=== PATIENT | female | born 1990 | race Caucasian/White ===

== ENCOUNTER → 2016-10-11 22:28 | Observation (INO) ==
[2016-10-11 21:26] VITALS: BP 128/73
[2016-10-11 21:47] LABS: Bilirubin,Urine Negative (Negative); Blood,Urine Negative (Negative); Clarity,Urine Cloudy (Clear); Color,Urine Yellow (Yellow); Glucose,Urine (UA) Normal (Normal); Ketones,Urine Negative (Negative); Leukocyte Esterase,Urine Negative (Negative); Nitrite,Urine Negative (Negative); Protein,Urine Negative (Neg-Trace); Specific Gravity,Urine 1.013 (1.010-1.025); Urobilinogen,Urine Normal (Normal)
[2016-10-11 21:50] LABS: Bacteria,Urine Few per hpf (None-Few); Hyaline Casts,Urine None Seen per lpf (None-Few); RBC,Urine 0-3 per hpf (0-3); Squamous Epithelial Cell,Urine Many per lpf (None-Few); WBC,Urine 0-3 per hpf (0-3)
[2016-10-11 21:53] LABS: Amphetamine Screen,Urine Negative ng/mL (Cutoff=1000); Barbiturate Screen,Urine Negative ng/mL (Cutoff=200); Benzodiazepines Screen,Urine Negative ng/mL (Cutoff=200); Cannabinoid Screen,Urine Negative ng/mL (Cutoff = 50); Cocaine Screen,Urine Negative ng/mL (Cutoff= 300); Opiate Screen,Urine Negative ng/mL (Cutoff=300); Phencyclidine Screen,Urine Negative ng/mL (Cutoff=25)
--- NOTE | 2016-10-11 22:08 | OB/GYN Progress Note ---
Date of Encounter: 10/11/16 Time of Encounter: 22:06 - Assessment and Plan (1) 29 weeks gestation of Current Visit: Yes Status: Acute (2) Cramping affecting , antepartum Current Visit: Yes Status: Acute Pt states she has had no further contractions or cramping episodes since she arrived at the hospital. None seen on monitor. Cervical exam fingertip. Discharged home with labor precautions. Pt verbalizes understanding. Subjective - Subjective Interval history: at 29+5 weeks gestation presents to triage with complaints of pelvic pain and pressure and occasional contractions since Sunday. Patient states that a few times today she felt her abdomen and uterus tightened and then released with only slight discomfort. Patient reports good movement and denies vaginal bleeding, or leaking of fluid. Last intercourse this morning at 4 AM. Antepartum ROS: movement normal, contractions, no loss of fluid, no vaginal bleeding Objective - Vital Signs Vital Signs: Vital Signs Temp Pulse Resp BP 10/11/16 21:14 97.9 F 92 16 128/73 Intake and Output 10/11/16 10/11/16 10/11/16 07:59 15:59 23:59 Other: Weight 101 kg Patient Weight 10/11/16 23:59 Weight 101 kg - Exam FHR: auscultation normal FHR comments: appropriate for gestational age baseline 135 Auscultation: bilateral: normal Abdomen: Present: normal appearance, soft Uterus: Present: normal Cervical dilation: fingertip inner os/long/-3 - Labs Labs: Abnormal lab results Urine Clarity Cloudy (Clear) A 10/11/16 21:34 Ur Squamous Epith Cells Many per lpf (None-Few) H 10/11/16 21:34
== END | disposition home or self-care (01) ==
LOC: 1NENULAB
PROVIDERS: ADMIT Advanced Practice Midwife; ATTEND Advanced Practice Midwife